=== PATIENT | male | born 1975 | race Caucasian/White ===

== ENCOUNTER 2018-07-28 05:41 | Observation (INO) ==
--- NOTE | 2018-07-17 12:41 | PAT Medication Instructions ---
Medication Instructions Date of Service July 17, 2018 Home Medications levocetirizine [Xyzal] 5 mg PO HS losartan 100 mg PO HS sumatriptan succinate [Imitrex] 1 tab PO NEEDED Tylenol-Codeine #3 1 tab PO BID NEEDED Continue as directed sumatriptan succinate [Imitrex] 1 tab PO NEEDED Take morning of surgery NOTHING TO EAT OR DRINK AFTER MIDNIGHT Take evening before surgery levocetirizine [Xyzal] 5 mg PO HS losartan 100 mg PO HS Tylenol-Codeine #3 1 tab PO BID NEEDED Other Notes If you have any questions please call us at [phone] or [phone] or [phone] or [phone]
--- NOTE | 2018-07-17 13:46 | Anesthesiology Consultation ---
Date of Service July 17, 2018 Assessment & Plan (1) Encounter for pre-operative examination: Chart Review Chart Review: Acceptable Risk for Surgery and Patient seen in Pre Admission Testing Consults Requested medical (Thad Ford (07/22)) Patient was seen by PCP's office on 07/22 who stated in his note that "Patient is medically stable." Teaching & Discussion Pre-Anesthesia Teaching/Discussion Notes: Instructed NPO after midnight before surgery, except medications with 15 cc of water. Medication instructions provided according to the PAT guidelines. History Surgery Operation Date: 07/28/18 07:45 Proposed Procedures p C5-C6, C6-C7 Anterior Cervical Discectomy and Fusion - Bernardino Alford, Height/Weight Height: 5 ft 11 in Weight: 102.2 kg Allergies Allergy/AdvReac Type Severity Reaction Status Date / Time meloxicam [From Mobic] Allergy Intermediate Hives Verified 07/16/18 09:29 Medications Home Medications Medication Instructions Recorded Confirmed Last Taken levocetirizine [Xyzal] 5 mg PO HS 07/16/18 07/16/18 Unknown losartan 100 mg PO HS 07/16/18 07/16/18 Unknown sumatriptan succinate [Imitrex] 1 tab PO UD PRN 07/16/18 07/16/18 Unknown Tylenol-Codeine #3 1 tab PO BID PRN 07/17/18 07/17/18 Unknown Past Medical History Medical History Cervical spinal stenosis Hypertension Migraine Seasonal allergies Sleep apnea CPAP (INSTRUCTED TO BRING) Past Surgical History Surgical History History of arthroscopy LEFT KNEE X 2 (ACL REPAIR) History of tooth extraction Past Anesthesia History No Hx of Anesthesia Complications and No Family Hx of Anesthesia Complications History of PONV Yes (Thinks it was due to the pain meds given after ACL repair. 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 Able to climb FOS. Denies CP or SOB. ) Review of Systems Patient denies chest pain, shortness of breath, dyspnea on exertion, reflux, cough, wheezing, palpitations. +joint pain (neck, back) Physical Exam Vital Signs BP: 116/81 P: 87 R: 18 T: 98.8 SPO2: 94% on RA ENMT Thyromental Distance: < 3.5 Finger Breadths (3) Mallampati Class: II Neck normal visual inspection and trachea midline; neck extension not limited Respiratory normal respiratory effort Auscultation: lungs clear to auscultation bilaterally Cardiovascular Rate/Rhythm: regular rate and regular rhythm Heart Sounds: no murmur Vessels: no carotid bruit Neurologic moves all extremities Psychiatric Orientation: alert and oriented x 3 Testing Electrocardiogram Date: 07/17/18 Findings: + NSR @ (78) Chest X-Ray Date: 07/17/18 Findings: + NAD Laboratory Results 07/17/18 14:01 07/17/18 14:01 Blood Type A Positive 07/17/18 14:01 Antibody Screen NEGATIVE 07/17/18 14:01 PT 10.0 Seconds (9.0-12.0) 07/17/18 14:01 INR 1.0 (0.9-1.1) 07/17/18 14:01 APTT 25.4 Seconds (21.0-31.0) 07/17/18 14:01 Urine Color Yellow 07/17/18 Unknown Urine Appearance Cloudy (Clear) H 07/17/18 Unknown Urine pH 7.5 (4.5-7.5) 07/17/18 Unknown Ur Specific [place] 1.019 (1.000-1.030) 07/17/18 Unknown Urine Protein Negative (Negative) 07/17/18 Unknown Urine Glucose (UA) Negative (Negative) 07/17/18 Unknown Urine Ketones Negative (Negative) 07/17/18 Unknown Urine Nitrite Negative (Negative) 07/17/18 Unknown Ur Leukocyte Esterase Negative (Negative) 07/17/18 Unknown Urine WBC (Auto) 0 /hpf (0-5) 07/17/18 Unknown Urine RBC (Auto) 0-4 /hpf (0-4) 07/17/18 Unknown U Hyaline Cast (Auto) 0 /lpf (0-5) 07/17/18 Unknown U Epithel Cells (Auto) 0-5 /lpf (0-5) 07/17/18 Unknown Urine Bacteria (Auto) Negative (Negative) 07/17/18 Unknown
[2018-07-17 14:50] LABS: Basophils # (auto) 0.02 K/uL (0-0.2); Basophils % (auto) 0.3 %; Eosinophils # (auto) 0.12 K/uL (0-0.5); Hematocrit (blood only) 48.4 % (42-52); Hemoglobin 16.2 g/dL (14.0-18.0); Immature Granulocytes # (auto) 0.01 K/uL (0.00-0.02); Immature Granulocytes % (auto) 0.2 %; Lymphocytes # (auto) 1.86 K/uL (1.2-3.4); Lymphocytes % (auto) 31.3 %; Mean Corpuscular Hgb Conc 33.5 g/dL (32-36); Mean Corpuscular Volume 95.1 fL (80-100); Mean Platelet Volume 9.3 fL (7.4-10.4); Monocytes # (auto) 0.53 K/uL (0.11-0.59); Monocytes % (auto) 8.9 %; Neutrophils % (auto) 57.3 %; Platelet Count 256 K/uL (130-400); RDW Standard Deviation 45.5 fL (36.4-46.3); Red Blood Count 5.09 M/uL (4.7-6.1); White Blood Count 5.94 K/uL (4.8-10.8)
--- NOTE | 2018-07-17 14:53 | XRay Report ---
XR chest Pre-admission PA/Lat CLINICAL HISTORY: Preoperative chest COMPARISON STUDY: No previous studies for comparison. FINDINGS: The heart is the upper limits of normal in size. There are prominent cardiophrenic angle fa t pads. There is no failure. There is no focal pulmonary consolidation. There are no pleural effusion s.[ IMPRESSION: No active disease in the chest. Electronically signed by: Chip Yuen M.D. 07/17/2018 2:52 PM
[2018-07-17 14:57] LABS: Appearance Urine Cloudy (Clear); Bacteria Urine Automated Negative (Negative); Bilirubin Urine Negative (Negative); Cast Urine Automated 0 /lpf (0-5); Color Urine Yellow; Epithelial Cell Urine Auto 0-5 /lpf (0-5); Glucose Urine UA Negative (Negative); Ketones Urine Negative (Negative); Leukocyte Esterase Urine Negative (Negative); Nitrite Urine Negative (Negative); Protein Urine Negative (Negative); Specific Gravity Urine 1.019 (1.000-1.030); Urobilinogen Urine Negative (Negative); WBC Urine Automated 0 /hpf (0-5); pH Urine 7.5 (4.5-7.5)
[2018-07-17 14:58] LABS: Partial Thromboplastin Time 25.4 Seconds (21.0-31.0)
[2018-07-17 15:03] LABS: BUN Creatinine Ratio 19.1 (10-20); Calcium 9.1 mg/dl (8.5-10.1); Creatinine Clr Calc Pharmacy 119.5 ml/min; Est GFR (African American) 111.6; Est GFR (Non-African American) 96.3; Potassium 4.1 mmol/L (3.5-5.1)
[~2018-07-28 05:41] MED LIST: CELEBREX: ALLERGY NOTED TO ORDERED MEDICATION SCH
[2018-07-28] MEDS ORDERED: LR 15ML/HR IV SCH (06:00)
[2018-07-28] MEDS ORDERED: CeleBREX 200 MG CAP PO SCH (06:00)
[2018-07-28] MEDS ORDERED: CEFAZOLIN 2000MG 2,000 MG/15 ML SYR IV SCH (06:00)
[2018-07-28] MEDS ORDERED: GABAPENTIN 300 MG x 3 PO SCH (06:00)
[2018-07-28] MEDS ORDERED: ACETAMINOPHEN 500 MG TAB PO SCH (06:00)
[2018-07-28] MEDS ORDERED: CeleBREX 200 MG CAP ONE (06:10)
[2018-07-28] MEDS ORDERED: fentaNYL citrate 100 MCG/2 ML VIAL ONE ×5 (06:36→09:16)
[2018-07-28] MEDS ORDERED: MIDAZOLAM HCL 1 MG/ML 2ML VIAL ONE (06:36)
[2018-07-28] MEDS ORDERED: HYDROmorphone INJ 2 MG/ML SYR/VIAL ONE ×2 (06:36)
[2018-07-28] MEDS ORDERED: PROPOFOL IV EMULSION 10 MG/ML 20 ML VIAL IV ONE (06:39)
[2018-07-28] MEDS ORDERED: GLYCOPYRROLATE 0.2 MG/ML VIAL ONE (06:39)
[2018-07-28] MEDS ORDERED: LIDOCAINE HCL 2% 2 ML VIAL/AMP(20MG/ML) INFIL ONE (06:39)
[2018-07-28] MEDS ORDERED: DEXAMETHASONE SOD INJ 4 MG/ML VIAL ONE (06:39)
[2018-07-28] MEDS ORDERED: ROCURONIUM BROMIDE 10 MG/ML 5 ML VIAL ONE (06:39)
[2018-07-28] MEDS ORDERED: NEOSTIGMINE METHYLSULFATE 1 MG/ML 10ML VIAL ONE (06:39)
[2018-07-28] MEDS ORDERED: ONDANSETRON INJ 2 MG/ML 2 ML VIAL ONE ×2 (06:39→09:04)
[2018-07-28] MEDS ORDERED: BACITRACIN INJ 50,000 UNIT VIAL ONE (06:56)
[2018-07-28] MEDS ORDERED: SCOPOLAMINE 1.5 MG TDSY TD ONE (07:23)
[2018-07-28] MEDS ORDERED: ATROPINE SULFATE 0.1 MG/ML 10ML SYR IV PRN (07:24)
[2018-07-28] MEDS ORDERED: PROMETHAZINE HCL 12.5 MG in SODIUM CHLORIDE 0.9% 50 ML IV PRN (07:24)
[2018-07-28] MEDS ORDERED: HYDROmorphone INJ 1 MG/ML SYRINGE IV PRN (07:24)
[2018-07-28] MEDS ORDERED: ONDANSETRON INJ 2 MG/ML 2 ML VIAL IV PRN (07:24)
[2018-07-28] MEDS ORDERED: LABETALOL HCL IV 5 MG/ML 20ML IV PRN (07:24)
[2018-07-28] MEDS ORDERED: SCOPOLAMINE 1.5 MG TDSY ONE (07:26)
--- NOTE | 2018-07-28 07:34 | History & Physical Bridge Note ---
Date of Service July 28, 2018 History & Physical Bridge Note I have examined the patient, reviewed the History & Physical and in the interval since the performance of the History & Physical I have noted the following changes of clinical significance: no changes noted
--- NOTE | 2018-07-28 07:35 | History & Physical Report ---
Date of Service July 28, 2018 Assessment & Plan (1) Cervical stenosis of spinal canal: Anterior cervical discectomy and fusion C5-6 C6-7 Present on Admission?: Yes History of Present Illness Chief Complaint: Neck and arm pain Primary Care Provider: MARTÍNEZ SALINAS This is a 43-year-old male presents with chronic persistent neck and arm pain. After failing extensive course of nonoperative care is here for surgical intervention. Allergies Allergy/AdvReac Type Severity Reaction Status Date / Time meloxicam [From Mobic] Allergy Intermediate Hives Verified 07/28/18 06:02 Home Medications Home Medications Medication Instructions Recorded Confirmed Type levocetirizine [Xyzal] 5 mg PO HS 07/16/18 07/28/18 History losartan 100 mg PO HS 07/16/18 07/28/18 History sumatriptan succinate [Imitrex] 1 tab PO UD PRN 07/16/18 07/28/18 History Tylenol-Codeine #3 1 tab PO BID PRN 07/17/18 07/28/18 History Past Med/Surg History Surgical History History of arthroscopy LEFT KNEE X 2 (ACL REPAIR) History of tooth extraction Social History Current Living Situation: Spouse Other Information That Helps Us Care for You: No Feels Safe at Home: Yes Safety Concerns: Feels Safe At This Time Smoking Status: Never smoker Do You Dip or Chew Tobacco: No Hx Alcohol Use: Yes Alcohol type: beer and wine Alcohol Intake Frequency: a few times a month Hx Substance Use: No Beliefs That Will Affect Care: None Preferred Language: Spanish Communication Ability: Effective Aged Or Disabled Carer Required: No Physical Exam 2 Vital Signs (Past 24 Hours): Last Vital Signs Temp 36.6 C 07/28/18 05:57 Pulse 81 07/28/18 05:57 Resp 20 07/28/18 05:57 BP 133/91 07/28/18 05:57 Pulse Ox 93 07/28/18 05:57 Results & Data Medications Administered Acetaminophen (Tylenol) 1,000 mg PO PREOP EULALIA Stop: 07/28/18 18:00 Last Admin: 07/28/18 06:22 Dose: 1,000 mg Gabapentin (Neurontin) 900 mg PO PREOP EULALIA Stop: 07/28/18 18:00 Last Admin: 07/28/18 06:22 Dose: 900 mg Lactated Ringer's (Lr) 1,000 mls @ 15 mls/hr IV .Q24H EULALIA Stop: 07/29/18 05:59 Last Admin: 07/28/18 06:22 Dose: 15 mls/hr
[2018-07-28] MEDS ORDERED: CHECK SCOPOLAMINE PATCH PLACEMENT SCH (08:00)
[2018-07-28] MEDS ORDERED: ePHEDrine sulfate 50 MG/ML SYR ONE (08:25)
[2018-07-28] MEDS ORDERED: PHENYLEPHRINE 100MCG/ML 5ML SYR ONE (08:25)
[2018-07-28] MEDS ORDERED: LARYING-O-JET KIT (LTA) ONE (08:25)
[2018-07-28] MEDS ORDERED: FLOSEAL HEMOSTATIC MATRIX 10ML TOP ONE (08:39)
[2018-07-28] MEDS ORDERED: raNITIdine HCl 25 MG/ML VIAL ONE (09:04)
[2018-07-28] MEDS ORDERED: METOCLOPRAMIDE HCL INJ 5 MG/ML 2 ML VIAL ONE (09:04)
--- NOTE | 2018-07-28 09:27 | Operative Report ---
Post Operative Report Pre & Post Diagnosis Operation Date: 07/28/18 07:45 Pre-Op Diagnosis: Spinal Stenosis, Cervical Region Post-Op Diagnosis: Spinal Stenosis, Cervical Region Procedure Operation Date: 07/28/18 07:45 Actual Procedures #1 anterior cervical discectomy bilateral foraminotomies C5-6 and C6-7. #2 anterior cervical arthrodesis C5-6 C6-7. #3 placement of cortical allograft filled with DBM 8 mm in height at C5-6 and 9 mm at C6-7. #4 application javier plate and screws across C5-6 C6-7. Surgeon Bernardino Alford, Rn Community None Estimated Blood Loss 50 Findings Consistent with Post-Op Diagnosis Specimens None Description of Procedure Patient was met with preoperatively case discussed all questions addressed. After informed consent obtained patient was taken to the operative suite underwent intubation and placed in supine position Cameron table on top of the Luis Enrique frame. All bony prominences well-padded eyes inspected to ensure no external pressure placed upon but this point the anterior cervical spine was prepped and draped in a sterile fashion. The assistance of fluoroscopy identified the C6 vertebral body and a transverse incision was placed on the right anterior aspect of the cervical spine overlying this region. Sharp dissection with the assistance of bipolar electrocautery was performed down to and exposing the anterior cervical spine from C5-C7. Self-retaining retractor placed. Then performed a complete discectomy of C5-6 up to the uncovertebral joints bilaterally. Sturgeon distracting pins utilized to assist in visualization. Removed all posterior annular fibers performed bilateral foraminotomies for complete decompression. Endplates then burred to subcortical bleeding bone and an 8 mm cortical allograft filled with DBM tamped in position. Then proceeded to see 6 7 again complete discectomy performed up to the uncovertebral joints bilaterally. Sturgeon distracting pins again utilized. Removed all posterior annular fibers longitudinal ligament bilateral foraminotomies performed to address all stenosis. In place burred to subcortical B bone and a 9 mm cortical allograft filled with DBM tamped in position. Distraction apparatus was removed and a javier plate and screws applied with the assistance of fluoroscopy. Incision was then copious irrigated explored to ensure no damage to surrounding structures remaining bleeding. 10 round EMILIANO drain inserted. Incision was then closed with 2 Vicryl in a fashion for Monocryl for final skin closure Steri-Strip sterile dressings placed. Patient will continue to PACU stable condition. I attest to the content of the Intraoperative Record and any orders documented therein. Any exceptions are noted below.
[2018-07-28] MEDS ORDERED: ESMOLOL HCL INJ 10 MG/ML 10ML VIAL IV ONE (09:38)
--- NOTE | 2018-07-28 09:41 | Fluoroscopy Report ---
FL cervical 2-3V CLINICAL HISTORY: Anterior cervical spine discectomy and fusion. COMPARISON STUDY: None. FLUOROSCOPY TIME: 20 seconds. FLUOROSCOPIC IMAGES: 3 FINDINGS: These images demonstrate a C5-C7 anterior discectomy and fusion. Hardware is intact. IMPRESSION: Fluoroscopic images demonstrating a C5-C7 anterior discectomy and fusion. Electronically signed by: Osvaldo Lomas M.D. 07/28/2018 9:40 AM
[2018-07-28] MEDS ORDERED: MAGNESIUM HYDROXIDE SUSP 30 ML UDC PO PRN (10:57)
[2018-07-28] MEDS ORDERED: DEXAMETHASONE SOD PHOSPHATE 8 MG in SYRINGE 0 ML IV PRN (10:57)
[2018-07-28] MEDS ORDERED: NALOXONE HCL 0.4 MG/1 ML VIAL/CARP IV PRN (10:57)
[2018-07-28] MEDS ORDERED: RACEPINEPHRINE 2.25% NEBU SOLN 0.5 ML VIAL INH PRN (10:57)
[2018-07-28] MEDS ORDERED: SUMAtriptan succinate 100 MG TAB PO PRN (10:57)
[2018-07-28] MEDS ORDERED: LORazepam 0.5 MG/1 ML VIAL IV PRN (10:57)
[2018-07-28] MEDS ORDERED: TYLENOL CODEINE PO PRN (10:57)
[2018-07-28] MEDS ORDERED: ACETAMINOPHEN 1,000 MG/100 ML VIAL IV PRN (10:57)
[2018-07-28] MEDS ORDERED: DO NOT ADMINISTER PNEUMOCOCCAL VACCINE PRN (10:57)
[2018-07-28] MEDS ORDERED: DiphenhydrAMINE HCL 50 MG/ML VIAL IV PRN (10:57)
[2018-07-28] MEDS ORDERED: LORazepam 0.5 MG TAB PO PRN (10:57)
[2018-07-28] MEDS ORDERED: DO NOT ADMINISTER FLU VACCINE PRN (10:57)
--- NOTE | 2018-07-28 11:17 | Anesthesiology Progress Note ---
Date of Service July 28, 2018 Anesthesia Post Procedure Vital Signs Vital Signs: Temp Pulse Pulse Resp BP Pulse Ox 07/28/18 10:40 36.0 C L 77 21 130/85 93 07/28/18 10:30 88 16 134/80 95 07/28/18 10:20 75 16 135/86 96 07/28/18 10:10 79 11 L 128/76 98 07/28/18 10:00 72 15 133/80 99 07/28/18 09:50 83 17 125/75 100 07/28/18 09:40 80 17 132/80 96 07/28/18 09:34 36.0 C L 79 18 130/82 98 07/28/18 05:57 36.6 C 81 20 133/91 93 Pain Intensity Neck: Pain Intensity: 3 Notes Mental Status: alert / awake / arousable Patient Amnestic to Procedure: Yes Nausea / Vomiting: adequately controlled Pain: adequately controlled Airway Patency, RR, SpO2: stable & adequate BP & HR: stable & adequate Hydration State: stable & adequate Anesthetic Complications: no major complications apparent
[2018-07-28] MEDS: HYDROmorphone INJ 0.5 MG/0.5 ML SYR IV PRN ×3 (11:53→22:07)
[2018-07-28] MEDS: ONDANSETRON INJ 2 MG/ML 2 ML VIAL IV PRN ×2 (11:54→22:07)
[2018-07-28] MEDS ORDERED: SCOPOLAMINE 1.5 MG TDSY TD SCH (12:30)
[2018-07-28] MEDS: OXYCODONE HCL IR 5 MG TAB (IMMEDIATE RELEASE) PO PRN ×2 (14:08→19:43)
[2018-07-28] MEDS: CHECK SCOPOLAMINE PATCH PLACEMENT SCH (16:04)
[2018-07-28] MEDS: LACTATED RINGER'S 1,000 ML IV SCH (16:11)
[2018-07-28] MEDS: CEFAZOLIN 2000MG 2,000 MG/15 ML SYR IV SCH (16:11)
[2018-07-28] MEDS: DOCUSATE SODIUM 100 MG CAP PO SCH (20:08)
[2018-07-28] MEDS ORDERED: COUGH DROP (SUGAR FREE) LOZ 24 LOZ/1 BOX BUCCAL PRN (20:12)
[2018-07-28] MEDS ORDERED: LOSARTAN POTASSIUM 50 MG TAB PO SCH (21:00)
[2018-07-29] MEDS: OXYCODONE HCL IR 5 MG TAB (IMMEDIATE RELEASE) PO PRN ×3 (00:22→12:30)
[2018-07-29] MEDS: CHECK SCOPOLAMINE PATCH PLACEMENT SCH ×2 (00:23→08:05)
[2018-07-29] MEDS: CEFAZOLIN 2000MG 2,000 MG/15 ML SYR IV SCH ×2 (00:23→08:11)
[2018-07-29] MEDS: ONDANSETRON INJ 2 MG/ML 2 ML VIAL IV PRN (04:16)
[2018-07-29] MEDS: HYDROmorphone INJ 0.5 MG/0.5 ML SYR IV PRN (04:17)
[2018-07-29] MEDS: LACTATED RINGER'S 1,000 ML IV SCH (04:34)
[2018-07-29] MEDS: DOCUSATE SODIUM 100 MG CAP PO SCH (08:06)
--- NOTE | 2018-07-29 13:50 | Discharge Summary ---
Date of Service July 29, 2018 Admission HPI Per Admitting Provider This is a 43-year-old male presents with chronic persistent neck and arm pain. After failing extensive course of nonoperative care is here for surgical intervention. Principal Diagnosis Cervical spinal stenosis with radiculopathy Discharge Data Allergies Allergy/AdvReac Type Severity Reaction Status Date / Time meloxicam [From Mobic] Allergy Intermediate Hives Verified 07/28/18 06:02 Procedures Performed Operation Date: 07/28/18 07:45 Actual Procedures p C5-C6, C6-C7 Anterior Cervical Discectomy and Fusion - Bernardino Alford DO Ordered Studies 07/28/18 07:00 FL cervical 2-3V Routine FL fluoroscopy <1hr Routine Hospital Course (1) Cervical stenosis of spinal canal: Patient underwent anterior cervical discectomy and fusion tolerated this well was taken to the orthopedic floor postoperative. Postop day 1 he was swallowing well. No hoarseness. Arm symptoms improved. Subsequently discharged home. Discharge orders and instructions found in the chart for further review. Total Time Total Time Spent Total Time Spent (In Minutes): Not applicable Discharge Plan Discharge Items Patient Disposition: Home - Self-Care Reason For Visit: Spinal Stenosis, Cervical Region Discharge Diagnosis: cervical stenosis Discharge Goals: Decrease discomfort Activity: Per 'Additional Instructions' section Non-emergency contact: Primary Care Provider Call non-emergency contact if: you have any medication questions Follow-up/Referrals: MARTÍNEZ SALINAS PA [Primary Care Provider] - Diet: Regular Addtl Provider Instructions: ACTIVITY RECOMMENDATIONS: SELF CARE INSTRUCTIONS AFTER CERVICAL FUSIONS 1. No smoking. Smoking drastically decreases the chance of a solid fusion. 2. No bending, lifting more than 5 pounds, or twisting (roll like a log when turning in bed). 3. You may shower 3 days after surgery. Thoroughly dry wound. Do not soak in the tub. 4. Cervical collar: Must be worn at all times including sleeping. You may remove the brace only to bath, eat and if you are sitting in a recliner. 5. Please walk as much as you can for exercise. Gradually increase the distance that you walk as your endurance increases. SPECIAL CARE INSTRUCTIONS: VERY IMPORTANT TO READ AND REVIEW A. Do not take any anti-inflammatory medications (i.e. Indocin, Advil, Aspirin, Naprosyn, Aleve, Motrin, etc.) as these may inhibit the chance of a solid fusion. Tylenol is okay to take. B. Your surgical incision has been closed with a cosmetic suture under the skin that will dissolve in about 6 weeks. In 14 days, you can use a pair of clean scissors and cut the suture that is left outside of the skin at the ends of your incision. C. Complications are uncommon, but please contact us if you have any signs or symptoms of: 1. wound infection (fever higher than 102.5 degrees F, redness, separation of wound, drainage, or increasing pain from the incision) 2. blood clots in legs (pain, swelling, redness and warmth in legs) 3. urinary tract infection (fever higher than 102.5 degrees, burning upon urination or increased frequency of urination) 4. nerve problems (inability to walk on your toes or heels, numbness, loss of bowel or bladder control) 5. any other symptoms that concern you. D. Please call the office at if you have any concerns or questions about your operation or recovery. MANAGING PAIN AFTER SPINAL SURGERY 1. Narcotic medication is intended for short-term use and will be provided for surgical pain. Surgical pain usually lasts for a period of 4-6 weeks. Narcotic medication includes Percocet, Vicodin, Darvocet, Tylenol #3 or Lortab. 2. Longer-term pain is more appropriately treated with non-narcotic medication such as Tylenol ES. 3. Muscle spasm is not appropriately treated with narcotics. Muscle relaxers such as Soma, Flexeril or Skelaxin can be used along with Tylenol ES. 4. Remember that we all live with some "aches and pains". This is not unusual or uncommon after an injury or as we get older. 5. We will provide appropriate medication within the normal guidelines of their prescribed use. We will also be very cautious and aware of potential abuse and extended duration of patients' medication needs. 6. Please allow 2-3 days to process refills. Prescriptions will not be mailed but must be picked up at the office. FOLLOW UP VISIT: Keep your scheduled follow-up appointment. Any questions, please call the office at . Prescriptions: New oxycodone 5 mg Tablet 5 mg PO Q4H PRN (Reason: Pain) Qty: 30 RF: 0 Continue sumatriptan succinate [Imitrex] 100 mg Tablet 1 tab PO UD PRN (Reason: Migraine Headache) RF: 0 losartan 100 mg Tablet 100 mg PO HS RF: 0 levocetirizine [Xyzal] 5 mg Tablet 5 mg PO HS RF: 0 Tylenol-Codeine #3 1 tab PO BID PRN (Reason: Pain) RF: 0 Stand-Alone Forms: [facility], [facility] Discharge Orders: Discharge Order (Routine); Ordered 07/29/18 Ordered By: Bernardino Alford Admission Data Admit Date/Time: 07/28/18 09:31 Attending Provider: Bernardino Alford Admit Provider: Bernardino Alford Primary Care Provider: MARTÍNEZ SALINAS Service: Medical Other Interventions: Discharge Summary Assessment (RN) Last Done: 07/29/18 12:18 DC Date/Time DO NOT enter until pt leaves facility: 07/29/18 13:37
[2018-07-30] MEDS ORDERED: BISACODYL 5 MG TABEC PO PRN (09:30)
[2018-07-30] MEDS ORDERED: POLYETHYLENE (MIRALAX) 17 GM PACK PO PRN (09:30)
== END 2018-07-29 13:37 | disposition home or self-care (01) ==
LOC: ASU 05:41 → 3E 05:41